=== PATIENT | female | born 1990 ===

== ENCOUNTER 2018-04-07 16:13 | Outpatient (CLI) | payer SELFPAY | END 2018-04-07 16:14 | disposition EMS.NT | LOC: EMS 16:13 | PROVIDERS: ATTEND Surgery | DX: Z04.1 Encounter for examination and observation following transport accident (principal); M79.644 Pain in right finger(s); M79.605 Pain in left leg; V49.9XXA Car occupant (driver) (passenger) injured in unspecified traffic accident, initial encounter; Y92.413 State road as the place of occurrence of the external cause ==